=== PATIENT | male | born 1990 | race Caucasian/White ===

== ENCOUNTER 2021-01-15 21:43 | Emergency (ER) | payer OTHER ==
[~2021-01-15] VITALS: Ht 182.9 cm; Wt 88.5 kg
[~2021-01-15 21:43] MED LIST: NOHOMEMEDICATIONS
[2021-01-15] MEDS ORDERED: BUPROPION HCL150 M1 PO (22:20)
[2021-01-15] MEDS ORDERED: ABILIFY20 MG PO (22:20)
[2021-01-15] MEDS ORDERED: BENAZEPRIL 10 M10 MG PO (22:21)
[2021-01-15] MEDS ORDERED: ATENOLOL 25 MG25 M1 PO (22:21)
[2021-01-15 22:27] LABS: URINE BILIRUBIN NEGATIVE (Negative); URINE BLOOD NEGATIVE (Negative); URINE CLARITY CLEAR; URINE COLOR YELLOW; URINE GLUCOSE-RANDOM NEGATIVE (Negative); URINE KETONES NEGATIVE (Negative); URINE LEUKOCYTES NEGATIVE (Negative); URINE NITRITE NEGATIVE (Negative); URINE PROTEIN NEGATIVE (Negative); URINE UROBILINOGEN 0.2 E.U./dl (0.2-1.0)
[2021-01-15 22:35] LABS: AMP/METHAMP POSITIVE (Negative); BARBITURATES Negative (Negative); BENZODIAZEPINES Negative (Negative); COCAINE Negative (Negative); METHADONE Negative (Negative); OPIATES Negative (Negative); PCP Negative (Negative); THC POSITIVE (Negative)
[2021-01-15 22:36] LABS: HEMATOCRIT 42.9 % (42.0-52.0); MCH 31.6 pg (26.0-34.0); MCHC 34.9 g/dL (28.0-37.0); MCV 90.6 fL (80.0-100.0); MPV 6.8 fl. (7.2-11.1); RBC 4.74 mil/uL (4.50-6.00); RDW-CV 12.8 % (10.5-14.5); WBC 7.2 thou/uL (4.0-11.0)
[2021-01-15 22:48] LABS: CALCIUM 8.6 mg/dL (8.5-10.1); CREATININE 1.2 mg/dL (0.6-1.3); POTASSIUM 3.7 mmol/L (3.5-5.1)
[2021-01-15 22:59] LABS: ALBUMIN 3.8 g/dL (3.4-5.0); TOTAL BILIRUBIN 0.3 mg/dL (<0.1-1.0); TOTAL PROTEIN 6.7 g/dL (6.4-8.2)
[2021-01-15 23:00] LABS: ALCOHOL 29 mg/dL (<10); SALICYLATE < 2.8 mg/dL (2.8-20.0)
[2021-01-15 23:01] LABS: ACETAMINOPHEN < 2 ug/mL (10-30)
[2021-01-16 08:13] VITALS: BP 111/60
== END 2021-01-16 08:15 ==
LOC: M.ERS 21:43
PROVIDERS: Personal Emergency Response Attendant
DX: R45.851 Suicidal ideations (principal); Z20.822 Contact with and (suspected) exposure to COVID-19; J45.909 Unspecified asthma, uncomplicated; F32.9 Major depressive disorder, single episode, unspecified; F20.9 Schizophrenia, unspecified